=== PATIENT | female | born 1995 | race African-American/Black ===

== ENCOUNTER 2019-01-06 11:36 | Emergency (ER) | payer OTHER ==
[2019-01-06] MEDS ORDERED: HYDROmorphone 1 MG/ML CARPUJECT IVP STA (12:13)
--- NOTE | 2019-01-06 12:14 | ED Physician Documentation ---
History of Present Illness - Stated complaint Stated Complaint: SEVERE R LEG PX - Chief complaint Chief Complaint: Abd Pain - History obtained from History obtained from: Patient, Friend - History of Present Illness Timing: How many hours ago (1) Pain level max: 10 Pain level now: 10 - Additonal information Additional information: 23-year-old female presents to the emergency department complaining of diffuse abdominal pain, radiating down the right thigh. Worse with movement and better with rest. 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 States no cause found at that time. Nothing makes it better. She states she took Midol this morning. Started her menses today. No fevers. No vomiting. No diarrhea. No change in sexual partners. Does not believe she is . 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 : None HEENT: None Psych: None Musculoskeletal: None Derm: None - Past Surgical History Past Surgical History: No - Present Medications Home Medications: Ambulatory Orders Medication Instructions Recorded Confirmed Cyclobenzaprine [Flexeril] 10 mg PO TID PRN #20 tablet 01/06/19 Meloxicam [Mobic] 15 mg PO DAILY PRN #20 tablet 01/06/19 - Allergies Allergies/Adverse Reactions: Allergies Allergy/AdvReac Type Severity Reaction Status Date / Time No Known Drug Allergies Allergy Verified 01/06/19 11:43 - Social History Does the pt smoke?: No Smoking Status: Never smoker Does the pt drink ETOH?: Yes ETOH Use: Wine Does the pt have substance abuse?: No - Immunizations Immunizations are current?: Yes - POLST Patient has POLST: No PD ED PE NORMAL - Vitals Vital signs reviewed: Yes - General General: Alert and oriented X 3, Well developed/nourished, Other (Appears in pain) - HEENT HEENT: PERRL, Moist mucous membranes, Pharynx benign - Neck Neck: Supple, no meningeal sign - Cardiac Cardiac: RRR - Respiratory Respiratory: No respiratory distress, Clear bilaterally - Abdomen Abdomen: Soft, Other (Diffusely tender to palpation. Positive guarding. Unable to test rebound.) - Female Female : Pt declined - Back Back: No spinal TTP, Other (Unable to test CVA tenderness.) - Derm Derm: Warm and dry - Extremities Extremities: Other (Tender palpation along the anterior aspect of the right thigh. No swelling. Normal temperature. Normal color. Strong pulses in the ankle and foot. Normal examination of the left leg. Neurovascularly intact bilaterally) - Neuro Neuro: Alert and oriented X 3 Results - Vitals Vitals: Vital Signs - 24 hr 01/06/19 01/06/19 01/06/19 11:41 11:56 12:21 Temperature 36.2 C L Heart Rate 92 95 109 H Respiratory 18 16 25 H Rate Blood Pressure 112/89 H 103/64 129/68 O2 Saturation 96 100 100 01/06/19 01/06/19 01/06/19 12:30 13:00 13:40 Temperature Heart Rate 96 101 H 93 Respiratory 32 H 26 H 18 Rate Blood Pressure 124/61 111/67 105/75 O2 Saturation 100 100 99 01/06/19 01/06/19 01/06/19 15:00 15:30 16:00 Temperature Heart Rate 77 95 74 Respiratory 14 100 H 14 Rate Blood Pressure 104/66 112/66 107/60 O2 Saturation 98 100 01/06/19 01/06/19 16:30 18:47 Temperature 36.7 C Heart Rate 77 75 Respiratory 16 16 Rate Blood Pressure 110/65 105/60 O2 Saturation 100 99 Oxygen O2 Source Room air - Labs Labs: Laboratory Tests 01/06/19 01/06/19 01/06/19 11:56 11:56 11:56 WBC 7.3 RBC 4.14 L Hgb 12.3 Hct 37.2 MCV 89.9 MCH 29.7 MCHC 33.1 RDW 12.1 Plt Count 347 MPV 8.8 Neut # (Auto) 4.6 Lymph # (Auto) 2.1 [place] # (Auto) 0.5 Eos # (Auto) 0.1 Baso # (Auto) 0.0 Absolute Nucleated RBC 0.00 Nucleated RBC % 0.0 Sodium 137 Potassium 3.0 L Chloride 103 Carbon Dioxide 21 Anion Gap 13.0 BUN 16 Creatinine 0.6 Estimated GFR (MDRD) 149 Glucose 116 H Calcium 9.1 Phosphorus Magnesium Total Bilirubin 0.7 AST 19 ALT 13 Alkaline Phosphatase 45 Total Creatine Kinase Total Protein 7.8 Albumin 4.4 Globulin 3.4 Albumin/Globulin Ratio 1.3 Lipase 25 HCG, Quant < 0.60 Urine Color Urine Clarity Urine pH Ur Specific [place] Urine Protein Urine Glucose (UA) Urine Ketones Urine Occult Blood Urine Nitrite Urine Bilirubin Urine Urobilinogen Ur Leukocyte Esterase Urine RBC Urine WBC Ur Squamous Epith Cells Urine Bacteria Urine Mucus Ur Microscopic Review Urine Culture Comments 01/06/19 01/06/19 01/06/19 11:56 11:56 13:58 WBC RBC Hgb Hct MCV MCH MCHC RDW Plt Count MPV Neut # (Auto) Lymph # (Auto) [place] # (Auto) Eos # (Auto) Baso # (Auto) Absolute Nucleated RBC Nucleated RBC % Sodium Potassium Chloride Carbon Dioxide Anion Gap BUN Creatinine Estimated GFR (MDRD) Glucose Calcium Phosphorus 2.0 L Magnesium 2.0 Total Bilirubin AST ALT Alkaline Phosphatase Total Creatine Kinase 95 Total Protein Albumin Globulin Albumin/Globulin Ratio Lipase HCG, Quant Urine Color YELLOW Urine Clarity CLEAR Urine pH 7.0 Ur Specific [place] <=1.005 Urine Protein NEGATIVE Urine Glucose (UA) NEGATIVE Urine Ketones 15 H Urine Occult Blood MODERATE H Urine Nitrite NEGATIVE Urine Bilirubin NEGATIVE Urine Urobilinogen 0.2 (NORMAL) Ur Leukocyte Esterase NEGATIVE Urine RBC 0-5 Urine WBC 0-3 Ur Squamous Epith Cells FEW Squamous Urine Bacteria Few Urine Mucus Few Strands Ur Microscopic Review INDICATED Urine Culture Comments NOT INDICATED - Rads (name of study) CT abdomen pelvis Radiology: Prelim report reviewed, EMP read contemporaneously, See rad report (normal) R femur xray Radiology: Prelim report reviewed, EMP read contemporaneously, See rad report (normal) RLE arterial US Radiology: Prelim report reviewed, EMP read contemporaneously, See rad report (normal) PD MEDICAL DECISION MAKING - ED course Complexity details: reviewed results, re-evaluated patient, considered differential, d/w patient ED course: Patient with abdominal pain and right thigh pain. Unclear etiology. No hernias palpable. No evidence of necrotizing fasciitis. No evidence of infection. No evidence of vascular injury. No evidence of trauma. Normal x-ray. Normal CT scan of the abdomen and pelvis. Normal laboratory testing. Pain improved with pain medications in the emergency department. Eventually she stated that it was more like spasming and muscle relaxants were used with good relief. We will have her follow-up with her doctor for further care. Pain is well controlled and she is ambulating well in the emergency department. Patient counseled regarding signs and symptoms for which I believe and urgent re-evaluation would be necessary. Patient with good understanding of and agreement to plan and is co mfortable going home at this time This document was made in part using voice recognition software. While efforts are made to proofread this document, sound alike and grammatical errors may occur. Departure - Departure Disposition: Home, Self Care Clinical Impression: Muscle spasm Condition: Good Instructions: ED Spasm Muscle Follow-Up: [facility] [Provider Group] - Within 3 Days Prescriptions: Cyclobenzaprine [Flexeril] 10 mg PO TID PRN #20 tablet PRN Reason: Spasms Meloxicam [Mobic] 15 mg PO DAILY PRN #20 tablet PRN Reason: pain Comments: Your labs, ultrasound, CT scan and x-rays are normal today. The cause of your symptoms is unclear, but seems to be improving with treatment for muscle spasm. We will trial you on muscle relaxants for home and have you follow-up with your doctor. Return if you worsen. Discharge Date/Time: 01/06/19 18:53
[2019-01-06] MEDS: SODIUM CHLORIDE 0.9% 1,000 ML IV ONE ×2 (12:20→14:06)
[2019-01-06 12:27] LABS: BASOPHILS % (AUTO) 0.1 %; EOSINOPHILS # (AUTO) 0.1 10^3/uL (0.0-0.7); EOSINOPHILS % (AUTO) 1.2 %; HGB - HEMOGLOBIN 12.3 g/dL (12.0-16.0); LYMPHOCYTES # (AUTO) 2.1 10^3/uL (1.5-3.5); LYMPHOCYTES % (AUTO) 28.4 %; MEAN CORPUSCULAR HEMOGLOBIN 29.7 pg (27.0-31.0); MEAN CORPUSCULAR HGB CONC 33.1 g/dL (32.0-36.0); MEAN CORPUSCULAR VOLUME 89.9 fL (81.0-99.0); MEAN PLATELET VOLUME 8.8 fL (7.9-10.8); MONOCYTES # (AUTO) 0.5 10^3/uL (0.0-1.0); NEUTROPHILS # (AUTO) 4.6 10^3/uL (1.5-6.6); PLT - PLATELET COUNT 347 10^3/uL (130-450); RED BLOOD COUNT 4.14 10^6/uL (4.20-5.40); RED CELL DISTRIBUTION WIDTH 12.1 % (12.0-15.0); WHITE BLOOD COUNT 7.3 x10^3/uL (4.8-10.8)
[2019-01-06 12:39] LABS: ALBUMIN 4.4 g/dL (3.2-5.5); ALBUMIN/GLOBULIN RATIO 1.3 (1.0-2.2); BILIRUBIN,TOTAL 0.7 mg/dL (0.2-1.0); CALCIUM 9.1 mg/dL (8.5-10.3); CREATININE 0.6 mg/dL (0.4-1.0); TOTAL PROTEIN 7.8 g/dL (6.7-8.2)
[2019-01-06] MEDS ORDERED: IOVERSOL 320 100 ML VIAL IVP ONE ×2 (12:50→13:30)
[2019-01-06] MEDS ORDERED: KETOROLAC 30 MG/ML VIAL IVP STA (13:59)
--- NOTE | 2019-01-06 14:04 | CT Report ---
Reason: diffuse abd pain Procedure Date: 01/06/2019 Accession Number: [id number] / [id number] Procedure: CT - Abdomen/Pelvis W CPT Code: Final Report FULL RESULT: EXAM: CT ABDOMEN AND PELVIS EXAM DATE: 01/06/2019 01:29 PM. CLINICAL HISTORY: Diffuse abdominal pain. COMPARISONS: None. TECHNIQUE: Routine helical CT imaging was performed through the abdomen and pelvis. IV contrast: Optiray- 320 90 mL. Enteric contrast: No. Reconstructions: Coronal and sagittal. In accordance with CT protocol optimization, one or more of the following dose reduction techniques were utilized for this exam: automated exposure control, adjustment of mA and/or KV based on patient size, or use of iterative reconstructive technique. FINDINGS: Lung Bases: Unremarkable. Liver: Normal. No masses. Gallbladder/Bile Ducts: Unremarkable. Spleen: Normal. Pancreas: Normal. Adrenal Glands: Normal. Kidneys: Normal. No masses or hydronephrosis. Peritoneal Cavity/Bowel: Normal. No free fluid, free air or adenopathy. No masses or acute inflammatory process.The appendix is well visualized and normal. Pelvic Organs: Normal. The bladder and visualized pelvic organs are within normal limits. Vasculature: No aneurysms or other significant abnormality. Bones: No significant abnormality. Other: None. IMPRESSION: Normal abdomen and pelvis CT. No evidence or source for complaint of pain on the basis of this test. Normal appendix. [facility]
[2019-01-06 14:08] LABS: BILIRUBIN,URINE NEGATIVE (NEGATIVE); GLUCOSE, URINE (UA) NEGATIVE (NEGATIVE); KETONES,URINE (UA) 15 mg/dL (NEGATIVE); LEUKOCYTE ESTERASE, URINE NEGATIVE (NEGATIVE); NITRITE,URINE NEGATIVE (NEGATIVE); OCCULT BLOOD,URINE MODERATE (NEGATIVE); PROTEIN,URINE NEGATIVE (NEGATIVE); UROBILINOGEN,URINE 0.2 (NORMAL) E.U./dL (NORMAL)
[2019-01-06 14:24] LABS: CLARITY,URINE CLEAR (CLEAR)
[2019-01-06 14:33] LABS: BACTERIA,URINE Few /HPF (None Seen); MUCUS,URINE Few Strands; RBC,URINE 0-5 /HPF (0-5); SQUAMOUS EPITHELIAL CELL,UR FEW Squamous (<= Few)
[2019-01-06] MEDS ORDERED: diazePAM INJ 5 MG/ML SYRINGE IVP STA (14:49)
--- NOTE | 2019-01-06 17:40 | Ultrasound Report ---
Reason: R LE pain Procedure Date: 01/06/2019 Accession Number: [id number] / [id number] Procedure: US - Duplex Lwr Ext Arterial RT CPT Code: Final Report FULL RESULT: EXAM: RIGHT LOWER EXTREMITY ARTERIAL DOPPLER ULTRASOUND EXAM DATE: 01/06/2019 05:07 PM. CLINICAL HISTORY: Right lower extremity pain. COMPARISON: None. TECHNIQUE: Real-time sonographic vascular imaging was performed by the post production assistant, utilizing color-flow, Doppler flow, and spectral analysis. Multiple c s s representative static images were saved for review. FINDINGS: Right Leg: BUFFET RUNNER: PSV 172 cm/sec. Triphasic waveform. PSFA: PSV 127 cm/sec. Triphasic waveform. MSFA: PSV 135 cm/sec. Triphasic waveform. DSFA: PSV 88 cm/sec. Triphasic waveform. PFA: PSV 129 cm/sec. Biphasic waveform. POP: PSV 71 cm/sec. Triphasic waveform. JENIFER: PSV 60 cm/sec. Triphasic waveform. HALAL BUTCHER: PSV 51 cm/sec. Biphasic waveform. PER: PSV 55 cm/sec. Biphasic waveform. DPA: PSV 51 cm/sec. Triphasic/Biphasic waveform. IMPRESSION: Patent right lower extremity arteries. No hemodynamically significant stenoses. [facility]
[2019-01-06] MEDS ORDERED: CYCLOBENZAPRINE 10 MG TABLET PO STA (18:05)
--- NOTE | 2019-01-06 18:18 | XRAY Report ---
Reason: R thigh pain Procedure Date: 01/06/2019 Accession Number: [id number] / [id number] Procedure: XR - Femur 2V RT CPT Code: Final Report FULL RESULT: EXAM: RIGHT FEMUR RADIOGRAPHY EXAM DATE: 01/06/2019 05:45 PM. CLINICAL HISTORY: Right thigh pain. COMPARISON: None. TECHNIQUE: 2 views. FINDINGS: Bones: Normal. No fracture or bone lesion. Joints: The visualized hip and knee joints are normal. No effusions. Soft Tissues: Normal. No soft tissue swelling. IMPRESSION: Normal femur radiography. [facility]
[2019-01-06 18:47] VITALS: BP 105/60
== END 2019-01-06 18:53 | disposition home or self-care (01) ==
LOC: ED 11:36
DX: M62.838 Other muscle spasm (principal); M79.651 Pain in right thigh; R10.84 Generalized abdominal pain
CPT/HCPCS: 36415; 73552; 74177; 80053; 81001; 82550; 83690; 83735; 84100; 84702; 85025; 93926; 96361; 96374; 96375; 99284; A9270; J1170; Q9967; 81003; 87086